=== PATIENT | female | born 1975 | race Two or more races ===

== ENCOUNTER 2016-09-23 14:24 | Emergency (ER) | payer BC ==
[~2016-09-23] VITALS: Ht 162.6 cm; Wt 70.0 kg
[2016-09-23] MEDS ORDERED: LEVO25TA7 PO (14:30)
[2016-09-23] MEDS ORDERED: IRON (14:30)
[2016-09-23] MEDS ORDERED: SODIUM CHLORIDE 0.9% 1,000 ML IV ONE (16:22)
[2016-09-23] MEDS ORDERED: ONDANSETRON HCL 4MG/2ML VIAL IV ONE (16:30)
[2016-09-23] MEDS ORDERED: DEXAMETHASONE 10MG/ML 1ML VIAL IV ONE (16:30)
[2016-09-23] MEDS ORDERED: MECLIZINE 25MG TABLET PO ONE (16:30)
[2016-09-23 16:43] LABS: EOSINOPHILS % 0.6 % (0.0-5.0); HEMATOCRIT. 34.8 % (36.0-48.0); HEMOGLOBIN. 11.5 g/dL (12.0-16.0); LYMPHOCYTES % 35.5 % (20.0-50.0); MEAN CORPUSCULAR VOLUME 78.5 fL (81.0-99.0); MEAN PLATELET VOLUME 8.7 fl (7.4-10.4); MONOCYTES % 6.2 % (2.0-8.0); NEUTROPHILS % 56.7 % (40.0-76.0); PLATELET 270 x1000/uL (130-400); RED BLOOD CELL COUNT 4.43 mill/uL (4.2-5.4); RED CELL DISTRIBUTION WIDTH 19.1 % (11.6-14.6)
[2016-09-23 16:48] LABS: CHLORIDE 104 mEq/L (98-107)
[2016-09-23 16:49] LABS: PROTHROMBIN TIME 10.1 sec
[2016-09-23 16:51] LABS: CARBON DIOXIDE 29 mEq/L (21-32)
[2016-09-23 16:58] LABS: CREATINE KINASE MB FRACTION 1.5 ng/mL (0.5-3.6); TROPONIN I < 0.02 ng/mL (0.00-0.04)
[2016-09-23 20:00] VITALS: BP 138/68
== END 2016-09-23 20:05 | disposition home or self-care (01) ==
LOC: ER 14:40
DX: R42 Dizziness and giddiness (principal); R51 Headache; I10 Essential (primary) hypertension; E03.9 Hypothyroidism, unspecified
CPT/HCPCS: 36415; 70450; 71010; 80053; 82553; 83735; 83880; 84484; 85025; 85610; 85730; 93005; 96361; 96374; 96375; 99285; J1100; J2405; J7030; Z7610; J8597